=== PATIENT | female | born 1980 | race Caucasian/White ===

== ENCOUNTER 2018-04-23 09:58 | Inpatient (IN) | payer MEDICAID, SELFPAY ==
[~2018-04-23] VITALS: Ht 154.9 cm; Wt 98.9 kg
[2018-04-23] MEDS ORDERED: LR 1,000 ML IV ONE (12:04)
[2018-04-23 12:12] VITALS: BP_SYST 116
[2018-04-23] MEDS ORDERED: CEFAZOLIN 2 GM IVPB PREMIX 50 ML IV ONE ×2 (12:15→21:48)
[2018-04-23 12:47] LABS: HEMATOCRIT 35.1 % (36-48); HEMOGLOBIN 11.6 g/dL (12.0-16.0); MEAN CORPUSCULAR HEMOGLOBIN 26 pg (27-31); MEAN CORPUSCULAR HGB CONC 33 % (32-36); MEAN CORPUSCULAR VOLUME 79 fL (79.0-98.0); PLATELET COUNT (AUTO) 211 K/uL (130-430); RED BLOOD CELL COUNT(AUTO) 4.43 MIL/uL (4.2-6.2); RED CELL DISTRIBUTION WIDTH 16.9 % (9.0-15.0); WHITE BLOOD COUNT (AUTO) 6.4 K/uL (4.8-10.8)
[2018-04-23 13:02] LABS: BILIRUBIN,URINE NEGATIVE (NEGATIVE); BLOOD, URINE NEGATIVE (NEGATIVE); CLARITY/URINE CLEAR (CLEAR); COLOR,URINE YELLOW (YELLOW); GLUCOSE,URINE NEGATIVE (NEGATIVE); KETONES,URINE NEGATIVE (NEGATIVE); LEUKOCYTE ESTERASE ,URINE 1+ (NEGATIVE); NITRITE, URINE NEGATIVE (NEGATIVE); PROTEIN URINE NEGATIVE (NEGATIVE); UROBILINOGEN,URINE 0.2 (0.2-1.0)
[2018-04-23 13:11] LABS: BASOPHILS % (MANUAL) 0 % (0-2); EOSINOPHILS % (MANUAL) 2 % (0-7); LYMPHOCYTES % (MANUAL) 24 % (20-46); MONOCYTES % (MANUAL) 4 % (0-11)
[2018-04-23 13:18] LABS: BACTERIA,URINE FEW /HPF (None Seen); MUCUS,URINE None Seen /LPF (None Seen); RBC,URINE 0-3 /HPF (0-3)
[2018-04-23] MEDS ORDERED: BUPIVACAINE /DEX PF 0.75% SPINAL 2 ML AMP INJ ONE (13:36)
[2018-04-23] MEDS ORDERED: MORPHINE SULFATE 10MG/10ML PF AMP EP ONE (13:36)
[2018-04-23] MEDS ORDERED: OXYTOCIN 10 UNIT/ML VIAL IV ONE (13:36)
[2018-04-23] MEDS ORDERED: NS IRRIG SOLN 1000 ML IR ONE (13:36)
[2018-04-23] MEDS ORDERED: LR 1,000 ML IV.SOLN IV ONE (13:36)
[2018-04-23] MEDS ORDERED: NALOXONE HCL 0.4 MG/ML AMP (NARCAN) IVP ONE (14:45)
[2018-04-23] MEDS ORDERED: fentaNYL CITRATE/PF 100 MCG/2 ML AMP IVP PRN (14:45)
[2018-04-23] MEDS ORDERED: KETOROLAC TROMETHAMINE 30 MG VIAL IM PRN (14:45)
[2018-04-23] MEDS ORDERED: HYDROmorphone 1 MG INJ. 1 MG/ML AMPUL IVP PRN (14:45)
[2018-04-23] MEDS ORDERED: MIDAZOLAM HCL 5 MG/5 ML VIAL IVP PRN (14:45)
[2018-04-23] MEDS ORDERED: ONDANSETRON HCL 4 MG/2 ML VIAL IVP ONE (14:45)
[2018-04-23] MEDS ORDERED: MEPERIDINE HCL/PF 25 MG/ML DISP.SYRIN IVP PRN (14:45)
[2018-04-23 15:40] VITALS: BP_SYST 121
[2018-04-23] MEDS ORDERED: fentaNYL CITRATE/PF 100 MCG/2 ML AMP ONE (15:56)
[2018-04-23] MEDS ORDERED: DIPH-TET-PERTUS Vaccine 0.5 ML VIAL (ADACEL) I.M. ONE (19:45)
[2018-04-23] MEDS ORDERED: KETOROLAC TROMETHAMINE 30 MG VIAL ONE (20:53)
[2018-04-23] MEDS ORDERED: KETOROLAC TROMETHAMINE 60 MG/2 ML VIAL IM ONE (21:00)
[2018-04-23] MEDS: CLINDAMYCIN 900 MG in D5W 100 ML IV SCH (21:45)
[2018-04-23] MEDS ORDERED: CLINDAMYCIN 900 mg/50mL D5W 50 ML IV ONE (21:48)
[2018-04-24] MEDS ORDERED: LR 1,000 ML IV SCH (01:00)
[2018-04-24] MEDS ORDERED: HYDROcodone/ACETAMIN 5-325 MG TAB (NORCO/ VICODIN) PO PRN (02:45)
[2018-04-24] MEDS ORDERED: OXYCODONE/ACETAMINOPHEN 5-325 TABLET PO PRN (02:45)
[2018-04-24] MEDS ORDERED: ANUSOL 1 EA SUPP.RECT (PREPARATION H) RC PRN (03:15)
[2018-04-24] MEDS ORDERED: SENNOSIDES/DOCUSATE SODIUM 1 TAB TABLET(SENOKOT-S) PO PRN (03:15)
[2018-04-24] MEDS ORDERED: LANOLIN 7 GM OINT. TP PRN (03:15)
[2018-04-24] MEDS ORDERED: BISACODYL 10 MG/SUPPOSITORY RC PRN (03:15)
[2018-04-24] MEDS ORDERED: DIPH-TET-PERTUS Vaccine 0.5 ML VIAL (ADACEL) I.M. PRN (03:15)
[2018-04-24] MEDS: ceFAZolin SODIUM 2 GM in D5W 100 ML IV SCH ×4 (04:15→22:54)
[2018-04-24] MEDS: CLINDAMYCIN 900 MG in D5W 100 ML IV SCH (05:22)
[2018-04-24] MEDS: IBUPROFEN 600 MG TABLET PO SCH ×3 (05:40→18:09)
[2018-04-24] MEDS ORDERED: IBUPROFEN 600 MG TABLET ONE (05:41)
[2018-04-24 06:51] LABS: BASOPHILS % (AUTO) 0.3 % (0.0-2.0); EOSINOPHILS # (AUTO) 0.1 K/uL (0.0-0.4); EOSINOPHILS % (AUTO) 1.2 % (0.0-4.0); HEMATOCRIT 33.3 % (36-48); HEMOGLOBIN 10.7 g/dL (12.0-16.0); LYMPHOCYTES # (AUTO) 0.9 K/uL (1.0-5.5); LYMPHOCYTES % (AUTO) 11.5 % (20.5-51.5); MEAN CORPUSCULAR HEMOGLOBIN 25 pg (27-31); MEAN CORPUSCULAR HGB CONC 32 % (32-36); MEAN CORPUSCULAR VOLUME 79 fL (79.0-98.0); MONOCYTES # (AUTO) 0.6 K/uL (0.0-1.0); MONOCYTES % (AUTO) 7.8 % (1.7-9.3); NEUTROPHILS # (AUTO) 6.4 K/uL (1.8-7.7); NEUTROPHILS % (AUTO) 79.2 % (40.0-70.0); PLATELET COUNT (AUTO) 211 K/uL (130-430); RED BLOOD CELL COUNT(AUTO) 4.21 MIL/uL (4.2-6.2); RED CELL DISTRIBUTION WIDTH 16.6 % (9.0-15.0)
[2018-04-24] MEDS: FERROUS SULFATE 325 MG TABLET.DR PO SCH ×3 (08:57→21:00)
[2018-04-24] MEDS ORDERED: COMMUNICATION ORDER XX ONE (09:15)
[2018-04-24] MEDS: SIMETHICONE 80 MG TAB.CHEW PO PRN ×3 (11:48→22:54)
--- NOTE | 2018-04-24 14:00 | NUR ---
Dietitian Recommendations * Recommend continuing regular diet per LP, RD Please refer to Nutrition Assessment for details.
[2018-04-24] MEDS: OXYCODONE/ACETAMINOPHEN 5-325 TABLET PO PRN ×2 (16:33→22:54)
[2018-04-24] MEDS ORDERED: TEMAZEPAM 15 MG CAPSULE PO PRN (21:00)
[2018-04-24] MEDS: DOCUSATE SODIUM 100 MG CAPSULE PO PRN (22:54)
[2018-04-25] MEDS: SIMETHICONE 80 MG TAB.CHEW PO PRN ×3 (09:34→21:20)
[2018-04-25] MEDS: DOCUSATE SODIUM 100 MG CAPSULE PO PRN ×2 (09:34→21:19)
[2018-04-25] MEDS: OXYCODONE/ACETAMINOPHEN 5-325 TABLET PO PRN (09:34)
[2018-04-25] MEDS: FERROUS SULFATE 325 MG TABLET.DR PO SCH ×3 (09:34→21:19)
[2018-04-25] MEDS: IBUPROFEN 600 MG TABLET PO SCH ×4 (11:52→23:35)
[2018-04-25] MEDS ORDERED: OXYTOCIN/0.9 % SODIUM CHLORIDE 0 ML IV ONE (13:54)
[2018-04-25] MEDS: NITROFURANTOIN MONOHYD/M-CRYST 100 MG CAPSULE PO SCH (21:00)
[2018-04-26] MEDS: IBUPROFEN 600 MG TABLET PO SCH ×4 (05:48→23:30)
[2018-04-26] MEDS: SIMETHICONE 80 MG TAB.CHEW PO PRN ×4 (05:50→22:56)
[2018-04-26] MEDS: NITROFURANTOIN MONOHYD/M-CRYST 100 MG CAPSULE PO SCH ×2 (09:10→21:00)
[2018-04-26] MEDS: FERROUS SULFATE 325 MG TABLET.DR PO SCH ×3 (10:12→21:00)
[2018-04-26] MEDS: DOCUSATE SODIUM 100 MG CAPSULE PO PRN ×2 (10:12→22:55)
[2018-04-26] MEDS: OXYCODONE/ACETAMINOPHEN 5-325 TABLET PO PRN (14:51)
[2018-04-27] MEDS: SIMETHICONE 80 MG TAB.CHEW PO PRN (09:44)
[2018-04-27] MEDS: FERROUS SULFATE 325 MG TABLET.DR PO SCH (09:44)
[2018-04-27] MEDS: NITROFURANTOIN MONOHYD/M-CRYST 100 MG CAPSULE PO SCH (09:45)
== END 2018-04-27 11:00 | disposition home or self-care (01) | DRG 540 ==
LOC: SPU 09:58
PROVIDERS: ADMIT Obstetrics & Gynecology; ATTEND Obstetrics & Gynecology
PROC: 0TQB0ZZ Repair Bladder, Open Approach (ICD-10-PCS; 2018-04-23)
PROC: 0DNW0ZZ Release Peritoneum, Open Approach (ICD-10-PCS; 2018-04-23)
PROC: 10D00Z1 Extraction of Products of Conception, Low, Open Approach (ICD-10-PCS; principal; 2018-04-23 15:30)
DX: O34.211 Maternal care for low transverse scar from previous cesarean delivery (principal); N73.6 Female pelvic peritoneal adhesions (postinfective); O99.89 Other specified diseases and conditions complicating pregnancy, childbirth and the puerperium; Z37.0 Single live birth; Z3A.38 38 weeks gestation of pregnancy; N99.71 Accidental puncture and laceration of a genitourinary system organ or structure during a genitourinary system procedure; Y83.8 Other surgical procedures as the cause of abnormal reaction of the patient, or of later complication, without mention of misadventure at the time of the procedure
CPT/HCPCS: 36415; 81000-TC; 85007; 85025; 85027; 86592; 86886; 86900; 86901; 87086; 94760; J0690; J1885; J2274; J2590; J3010; J3490; J7060; J7120